=== PATIENT | female | born 1980 | race Two or more races ===

== ENCOUNTER 2021-07-15 06:11 | Inpatient (IN) | payer MEDICAID, OTHER ==
[~2021-07-15] VITALS: Ht 162.6 cm; Wt 56.7 kg
[2021-07-15 07:01] LABS: BASOPHILS % 0.9 % (0.0-2.0); HEMATOCRIT. 36.1 % (36.0-48.0); HEMOGLOBIN. 11.7 g/dL (12.0-16.0); LYMPHOCYTES % 18.7 % (20.0-50.0); MEAN CORPUSCULAR HEMOGLOBIN 29.4 pg (28.0-32.0); MEAN CORPUSCULAR VOLUME 90.8 fL (81.0-99.0); MEAN PLATELET VOLUME 8.1 fl (7.4-10.4); MONOCYTES % 5.4 % (2.0-8.0); PLATELET 244 x1000/uL (130-400); RED BLOOD CELL COUNT 3.98 mill/uL (4.2-5.4); RED CELL DISTRIBUTION WIDTH 13.4 % (11.6-14.6)
[2021-07-15 07:04] LABS: CHLORIDE 114 mEq/L (98-107)
[2021-07-15 07:54] LABS: T4 FREE 1.05 ng/dL (0.76-1.46)
[2021-07-15 10:25] VITALS: BP 101/48
[2021-07-15] MEDS ORDERED: ACETAMINOPHEN 325MG TABLET PO PRN (11:15)
[2021-07-15 12:00] VITALS: BP 98/50
[2021-07-15] MEDS ORDERED: ONDANSETRON HCL 4MG/2ML INJ IV PRN (13:00)
[2021-07-15] MEDS: FAMOTIDINE 20MG TABLET PO SCH ×2 (13:26→21:00)
[2021-07-15] MEDS: SODIUM CHLORIDE 0.45% 1,000 ML IV SCH (13:26)
[2021-07-15 16:00] VITALS: BP 102/45
[2021-07-15 20:00] VITALS: BP 102/35
[2021-07-15] MEDS ORDERED: NALOXONE HCL 0.4MG/ML VIAL IV PRN (21:15)
[2021-07-15] MEDS: MORPHINE SULFATE 2 MG/ML CPJ (NOT FOR IM USE) IV PRN (21:30)
[2021-07-15 23:03] LABS: CLARITY URINE CLEAR (CLEAR); COLOR URINE YELLOW (YELLOW); KETONES URINE NEGATIVE (NEGATIVE); LEUKOCYTE ESTERASE URINE NEGATIVE (NEGATIVE); NITRITE URINE NEGATIVE (NEGATIVE); OCCULT BLOOD URINE NEGATIVE (NEGATIVE); PROTEIN URINE NEGATIVE (NEGATIVE); SPECIFIC GRAVITY URINE 1.008 (1.005-1.030); UROBILINOGEN URINE 0.2 E.U./dL (0.2-1.0)
[2021-07-15 23:13] LABS: UCG SCREEN NEGATIVE
[2021-07-15 23:14] LABS: *BARBITURATES SCREEN URINE NEGATIVE (NEGATIVE); CANNABINOID URINE SCREEN NEGATIVE (NEGATIVE); PHENCYCLIDINE URINE SCREEN NEGATIVE (NEGATIVE)
[2021-07-15 23:15] LABS: *AMPHETAMINES SCREEN URINE NEGATIVE (NEGATIVE); *BENZODIAZEPINES SCREEN URINE NEGATIVE (NEGATIVE); *COCAINE SCREEN URINE NEGATIVE (NEGATIVE); METHADONE URINE SCREEN NEGATIVE (NEGATIVE)
[2021-07-15 23:18] LABS: OPIATES URINE SCREEN PRESUMTIVE POSITIVE (NEGATIVE)
[2021-07-16] VITALS: BP 97/51
[2021-07-16] MEDS: SODIUM CHLORIDE 0.45% 1,000 ML IV SCH ×3 (01:26→12:33)
[2021-07-16] MEDS: MORPHINE SULFATE 2 MG/ML CPJ (NOT FOR IM USE) IV PRN (01:26)
[2021-07-16 08:16] VITALS: BP 95/42
[2021-07-16] MEDS ORDERED: HEPARIN 5000 UNITS/ML VIAL SUBCUT SCH (09:00)
[2021-07-16] MEDS: FAMOTIDINE 20MG TABLET PO SCH (09:25)
[2021-07-16] MEDS ORDERED: BACLOFEN 10MG TABLET PO PRN (10:30)
[2021-07-16 11:50] VITALS: BP 100/65
[2021-07-16 15:43] VITALS: BP 114/78
[2021-07-16 16:15] VITALS: BP 114/78
== END 2021-07-16 16:48 | disposition home or self-care (01) | DRG 48 ==
LOC: ER 06:11 → 6WST 08:37 → EDBEDREQ 08:40 → ENRESERV 09:09 → 6WST 13:10
PROVIDERS: ADMIT Internal Medicine Pulmonary Disease; ATTEND Internal Medicine Pulmonary Disease
DX: G90.8 Other disorders of autonomic nervous system (principal); E87.8 Other disorders of electrolyte and fluid balance, not elsewhere classified; I95.9 Hypotension, unspecified; E06.3 Autoimmune thyroiditis; R00.1 Bradycardia, unspecified; M54.9 Dorsalgia, unspecified; R94.6 Abnormal results of thyroid function studies
CPT/HCPCS: 36415; 70551; 71045; 74176; 80053; 80305; 80320; 81003; 81025; 83880; 84439; 84443; 84481; 84484; 85025; 85379; 93005; 93306; 97161; 99285; J1644; J2270; G0480